=== PATIENT | male | born 1990 | race Caucasian/White ===

== ENCOUNTER 2018-07-27 20:14 | Emergency (ER) | payer OTHER ==
[~2018-07-27] VITALS: Ht 190.5 cm; Wt 91.1 kg
[2018-07-27 20:17] VITALS: BP 141/80; PULSE 66; RESP 20; Ht 190.5 cm; Wt 91.1 kg
[2018-07-27] MEDS ORDERED: DIPHTH/TET/ACEL PERTUSS (ADULT) 0.5 ML VIAL IM* ONE (20:30)
[2018-07-27] MEDS ORDERED: KETOROLAC 30 MG INJ IM STA (20:30)
[2018-07-27] MEDS ORDERED: LIDOCAINE 1% (MDV) 20 ML INJ SC ONE (20:30)
--- NOTE | 2018-07-27 20:36 | ERD ---
ER Documentation Chief Complaint Chief Complaint LAC TO R 5TH DIGIT AND R FOREARM FROM BROKEN GLASS HPI Patient is a 28 years old male with past medical history of depression presenting to the clinic for right fifth digit and right dorsal forearm lacerations since 30 minutes ago. Patient reports carrying a glass bottle of Coca[employer] when he accidentally tripped on the sidewalk and shattered the glass onto his hand. Patient denies any head trauma/injury, loss of consciousness, confusion. Patient cannot recall last tetanus vaccination. ROS All systems reviewed and are negative except as per history of present illness. Medications Home Meds Active Scripts Ibuprofen* (Motrin*) 800 Mg Tab, 800 MG PO Q6, #30 TAB Prov:MEREDITH MURO PA-C 07/28/18 Sulfamethoxazole/Trimethoprim* (Bactrim Ds* Tablet) 1 Each Tablet, 1 TAB PO DAILY, #7 TAB Prov:MEREDITH MURO PA-C 07/28/18 Allergies Allergies: Coded Allergies: Penicillins (Verified Allergy, Unknown, 07/27/18) PMhx/Soc Depression Medical and Surgical Hx: pt denies Medical Hx History of Surgery: Yes (right hand) Anesthesia Reaction: No Hx Neurological Disorder: No Hx Respiratory Disorders: No Hx Cardiac Disorders: No Hx Psychiatric Problems: Yes Hx Miscellaneous Medical Probl: No Hx Alcohol Use: Yes (socially) Hx Substance Use: Yes (marijuana) Hx Tobacco Use: No Smoking Status: Current every day smoker FmHx Family History: No diabetes, No coronary disease, No other Physical Exam Vitals Physical Exam Const: No acute distress Head: Atraumatic Eyes: Normal Conjunctiva Resp: Clear to auscultation bilaterally Cardio: Regular rate and rhythm, no murmurs Neur: Awake and alert Psych: Normal Mood and Affect Right fifth digit exam: 2 horizontal laceration on middle and distal phalanx that is actively bleeding. Right elbow exam: 5cm laceration on proximal dorsal forearm without active bleeding. Results 24 hrs Current Medications Medications Dose Sig/Karla Start Time Status Last (Trade) Ordered Route PRN Stop Time Admin Dose Reason Admin Ketorolac 30 mg ONCE STAT 07/27/18 DC 07/27/18 Tromethamine IM 20:30 07/27/18 20:49 (Toradol) 20:33 Lidocaine 20 ml ONCE ONCE 07/27/18 DC (Xylocaine SC 20:30 07/27/18 1% (Mdv) 20 20:33 ml) Diphtheria/ 0.5 ml ONCE ONCE 07/27/18 DC 07/27/18 Tetanus/Acell IM* 20:30 07/27/18 20:49 Pertussis 20:33 (Adacel) Bacitracin 1 applic ONCE ONCE 07/28/18 DC 07/28/18 (Bacitracin TOP 00:30 07/28/18 00:13 0.5%/ Zinc 00:31 Oint) Procedures/MDM Patient was seen and evaluated for laceration. Wound care + thorough irrigation performed with normal saline followed by right 5th digit X-ray. Digital X-Ray showed foreign body in tissue, which was followed by through irrigation and repeat imaging that showed no foreign body. Under Sterile technique, laceration repair performed. 1% lidocaine used followed by 4.0 prolene. 8 sutures placed on digit followed by 5 on dorsal forearm. Patient tolerated the procedure well. Patient was informed to follow-up in 5 days for suture removal. Patient is stable and ready for discharge Departure Diagnosis: Primary Impression: Laceration Condition: Stable Patient Instructions: Laceration, Hand Referrals: [facility] Additional Instructions: Follow up in 5 days for suture removal. Patient advised to return to the ED immediately for new or worsening symptoms. Patient advised to follow up with primary care provider in the next 24-48 hours. Patient verbalized understanding and agrees with treatment plan and course of action. If patient has no primary care they may follow up with [facility] [address] [place] [id number] or [facility] [address] [place] [address] [id number] MEREDITH MURO PA-C Jul 27, 2018 20:36
[2018-07-28] MEDS ORDERED: SULF1TAB31 PO (00:11)
[2018-07-28] MEDS ORDERED: IBUP800T48 PO (00:11)
[2018-07-28] MEDS ORDERED: BACITRACIN 0.5%/ZINC 28.35 GM OINT TOP ONE (00:30)
== END 2018-07-28 00:34 | disposition home or self-care (01) ==
LOC: FTE 20:14
DX: S51.811A Laceration without foreign body of right forearm, initial encounter (principal); S61.216A Laceration without foreign body of right little finger without damage to nail, initial encounter; F17.210 Nicotine dependence, cigarettes, uncomplicated; W25.XXXA Contact with sharp glass, initial encounter; Y92.9 Unspecified place or not applicable; Z23 Encounter for immunization
CPT/HCPCS: 12002; 73140; 90471; 90715; 96372; 99284; J1885